=== PATIENT | female | born 1955 | race Caucasian/White ===

== ENCOUNTER → 2018-03-18 08:21 | Outpatient (CLI) | payer OTHER, SELFPAY ==
--- NOTE | 2018-03-18 08:23 | MM_ITS ---
MM Dig screening mamm BI w/CAD CAD Screening COMPARISON: Digital mammograms with CAD 02/13/2016 and 08/14/2013 INDICATION: There is a history of breast cancer patient maternal grandmother. TECHNIQUE: Standard CC and MLO images were obtained. R2 CAD reviewed. FINDINGS: The breasts are composed of entirely of fat with very minimal scattered fibroglandular densities seen in each breast. There is no suspicious lesion and no suspicious microcalcifications. Again noted is the pacemaker device overlying the axillary tail left breast. IMPRESSION: Fatty type breast parenchyma no suspicious lesion seen BI-RADS Category: 2 Benign Finding(s) RECOMMENDED FOLLOW-UP: 1YR - 1 YEAR FOLLOW-UP (A letter has been sent to the patient regarding results of the study.)
== END ==
PROVIDERS: PCP Nurse Practitioner Family; Visit Provider Nurse Practitioner Family
DX: Z12.31 Encounter for screening mammogram for malignant neoplasm of breast (principal)
CPT/HCPCS: 77067

== ENCOUNTER → 2018-08-12 09:47 | Outpatient (CLI) | payer BC, SELFPAY ==
[2018-08-12 11:56] LABS: Alanine Aminotransferase 40 U/L (12-78); Albumin Level 3.9 gm/dL (3.4-5.0); Alkaline Phosphatase 68 U/L (46-116); Anion Gap 17.6 mEq/L (5-15); Aspartate Amino Transferase 17 U/L (15-37); Bilirubin,Direct 0.1 mg/dL (0.0-0.2); Bilirubin,Indirect 0.4 mg/dL (0.0-0.9); Bilirubin,Total 0.5 mg/dL (0.2-1.0); Blood Urea Nitrogen 16 mg/dL (7-18); Carbon Dioxide 23 mmol/L (21.0-32.0); Chloride 104 mmol/L (98-107); Chol/HDL Ratio 4.9 (1-3.5); Cholesterol 206 mg/dL (140-200); Creatinine,Serum 1.05 mg/dL (0.55-1.02); Estimated Glomerular Filt Rate 53 ml/min (>60); GFR (African American) 64 ML/MIN (>60); Glucose 113 mg/dL (74-106); HDL Cholesterol 42 mg/dL (29-89); LDL Cholesterol 121 mg/dL (0-130); Potassium 4.6 mmoL/L (3.5-5.1); Sodium 140 mmol/L (136-145); Total Protein,Serum 7.2 gm/dL (6.4-8.2); Triglycerides 216 mg/dL (30-200); VLDL Cholesterol 43 mg/dL (0-40)
== END ==
PROVIDERS: Visit Provider Urology
DX: E78.5 Hyperlipidemia, unspecified (principal); I10 Essential (primary) hypertension; I25.10 Atherosclerotic heart disease of native coronary artery without angina pectoris; I51.9 Heart disease, unspecified; Z95.810 Presence of automatic (implantable) cardiac defibrillator; I11.9 Hypertensive heart disease without heart failure
CPT/HCPCS: 36415; 80048; 80061; 80076

== ENCOUNTER → 2019-02-10 11:30 | Outpatient (CLI) | payer BC, SELFPAY ==
[2019-02-10 12:40] LABS: Alanine Aminotransferase 33 U/L (12-78); Alkaline Phosphatase 65 U/L (46-116); Aspartate Amino Transferase 21 U/L (15-37); Bilirubin,Direct 0.1 mg/dL (0.0-0.2); Bilirubin,Indirect 0.5 mg/dL (0.0-0.9); Bilirubin,Total 0.6 mg/dL (0.2-1.0); Chol/HDL Ratio 2.8 (1-3.5); Cholesterol 153 mg/dL (140-200); HDL Cholesterol 54 mg/dL (29-89); LDL Cholesterol 76 mg/dL (0-130); Triglycerides 117 mg/dL (30-200); VLDL Cholesterol 23 mg/dL (0-40)
== END ==
PROVIDERS: Visit Provider Internal Medicine Cardiovascular Disease
DX: I10 Essential (primary) hypertension (principal); I11.9 Hypertensive heart disease without heart failure; I25.10 Atherosclerotic heart disease of native coronary artery without angina pectoris; I51.9 Heart disease, unspecified; R06.00 Dyspnea, unspecified; R53.83 Other fatigue; G47.33 Obstructive sleep apnea (adult) (pediatric); Z95.810 Presence of automatic (implantable) cardiac defibrillator
CPT/HCPCS: 36415; 80061; 80076; 83880

== ENCOUNTER → 2019-02-27 07:58 | Outpatient (CLI) | payer BC, SELFPAY ==
--- NOTE | 2019-02-27 08:01 | CA_ITS ---
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: Aspen Morley RT(R) Ht: 5 ft 1 in Wt: 216lbs BSA: 1.95 BP: 143/83 mmHg Indications: CAD, HTN, SOA, YARBROUGH, obesity, hyperlipidemia, hx of 3 cardiac stents M-Mode Dimensions RVDd 2.15 cm (0.9-2.6) LVDd 5.42 cm (3.5-5.7) LVDs 4.05 cm (3.5-5.7) IVSd 0.93 cm (0.6-1.1) PWd 0.93 cm (0.6-1.1) EF (Teich) 49.40% FS 25.30% EDV (Teich) 142.50 mL ESV (Teich) 72.10 mL LV Diastology E/A Ratio 0.75 Mitral Valve MV A Velocity 78.00 (40-130 cm/s) Left Ventricle Left atrium is mildly enlarged, left ventricle is normal size, mild concentric left ventricular hypertrophy, visually estimated ejection fraction 55% with no regional wall motion abnormality, grade 1 diastolic dysfunction seen without tissue Doppler evidence of raise left atrial pressure. Right Ventricle Right atrium and right ventricular normal size and contractility. Aortic Valve Aortic valve is minimally thickened and fibrosed, there is no aortic stenosis aortic insufficiency. Mitral Valve Mitral valve is grossly normal, there is no mitral stenosis, there is mild mitral regurgitation. Tricuspid Valve Tricuspid valve is grossly normal, there is mild tricuspid regurgitation. Pulmonic Valve Pulmonic valve is poorly visualized. Great Vessels Aortic root is normal size. Pericardium No significant pericardial effusion noted. Conclusion 1. Mildly enlarged left atrium, normal left ventricular size, mild concentric left ventricular hypertrophy, visually estimated ejection fraction 55% with no regional wall motion abnormality, grade 1 diastolic dysfunction seen without tissue Doppler evidence of raise left atrial pressure. 2. Mild mitral and tricuspid regurgitation. 3. No significant pericardial effusion noted. Electronically signed by : [place], 02/27/2019 21:22:08
== END ==
PROVIDERS: PCP Nurse Practitioner Family; Visit Provider Internal Medicine Cardiovascular Disease
DX: I11.9 Hypertensive heart disease without heart failure (principal); I25.10 Atherosclerotic heart disease of native coronary artery without angina pectoris; R06.00 Dyspnea, unspecified; G47.33 Obstructive sleep apnea (adult) (pediatric)
CPT/HCPCS: 93306

== ENCOUNTER 2020-03-06 11:02 | Day surgery (SDC) | payer BC, SELFPAY ==
--- NOTE | 2020-03-06 | IR_ITS ---
APPROVED REPORT Patient Location: Outpatient Manager Validation: CHANELLE Tran RT (R) PROCEDURES Pocket Revision Removal of old Pacemaker Implant of Permanent Pacemaker INDICATION Ejection Fraction <30%, Normal Battery Depletion Informed consent was obtained prior to the procedure. COMPLICATIONS None Estimated Blood Loss: Less than 10 mls TECHNIQUE 1% lidocaine with epinephrine used to anesthetize the left anterior aspect of the chest. Scalpel was used to make the initial cutaneous incision and then used to dissect down to the existing pacemaker generator. The generator was removed from the existing pocket. Digital manipulation was required along with intermittent usage of scalpel in order to revise the pocket. The leads were removed from the old generator. The new generator was screwed to the existing leads and secured into place. Electronic interrogation proved acceptable thresholds and voltage within the lead. Antibiotics were used to flush the pocket and the pacemaker was secured using 3-0 silk into the newly revised pocket. Monocryl was used to close the subcutaneous tissue and then traci were placed on the cutaneous area in order to approximate the incision. Patient was transferred to the postop holding area in stable condition. INTERROGATION Explanted Generator Model number: [employer], 2311-36 Explanted Generator Serial number: [id number] Implanted Generator Model number: Momentum EL ICD DR, D121 Implanted Generator Serial number: [id number] Atrial lead model number: Tendril STS, 2088TC Atrial lead serial number: [id number] P-wave: 5.6mV Impedence: 443 ohms Threshold: 1.2V@0.4ms Right Ventricular lead model number: Teofilo IS-1/DR-1, 7120 Right Ventricular lead serial number: [id number] R-wave: 6.8mV Impedence: 459 ohms Threshold: 1.2V@0.4ms Pacing Parameters: Mode: DDDR Base/Max Track: 70ppm/130ppm RYTHMIQ: AAIR with VVI Backup ICD Rate Cutoffs: VT: 180 bpm, 10.0 seconds, Monitor only VF: 200 bpm, 2.5 seconds, Quick convert, 41J x 8 No diaphragmatic stimulation at 10 volts. IMPRESSION Successful Pocket Revision Successful Removal of old Pacemaker Successful Implant of Permanent Pacemaker PLAN 1. Post op wound care, follow up office visit Electronically signed by : Corey Gunter, 03/07/2020 08:53:45
[2020-03-06 11:07] LABS: Bilirubin,Unconjugated 0.5 mg/dL (0.0-1.1)
[2020-03-06 11:08] LABS: Alanine Aminotransferase 39 U/L (12-78); Albumin Level 4.6 g/dl (3.5-5.0); Alkaline Phosphatase 71 U/L (38-126); Aspartate Amino Transferase 34 U/L (14-36); Bilirubin,Direct 0.1 mg/dl (0.0-0.4); Bilirubin,Indirect 0.5 mg/dL (0.0-0.9); Bilirubin,Total 0.6 mg/dl (0.2-1.3); Chol/HDL Ratio 3.7 (1-3.5); Cholesterol 208 mg/dl (140-200); HDL Cholesterol 56 mg/dl (40-60); Total Protein,Serum 7.7 g/dl (6.3-8.2); Triglycerides 185 mg/dl (30-150); VLDL Cholesterol 37 mg/dL (0-40)
[2020-03-06 11:18] VITALS: BMI 42.1
[2020-03-06 11:19] LABS: Direct LDL Cholesterol 102.48 mg/dL (100-129)
[2020-03-06 11:38] VITALS: BP 158/83; PULSE 70; RESP 20; O2SAT 94
[2020-03-06 11:40] LABS: Coronavirus 19 IgG Antibody Negative (Negative); Coronavirus 19 IgM Antibody Negative (Negative)
[2020-03-06 12:51] LABS: Chloride 102 mmol/L (98-107)
[2020-03-06 12:52] LABS: Potassium 4.8 mmoL/L (3.5-5.1); Sodium 138 mmol/L (136-145)
[2020-03-06 12:54] LABS: Basophils % 0.6 % (0.1-2.0); Eosinophils # 0.2 K/mm3 (0.0-0.4); Eosinophils % 2.4 % (0.1-12.0); Hematocrit 42.3 % (37.0-47.0); Hemoglobin 14.3 g/dL (12.2-16.2); Lymphocytes % 31.3 % (10-50); Mean Corpuscular HGB Conc 33.9 g/dL (31.8-35.4); Mean Corpuscular Hemoglobin 30.7 pg (27.0-31.2); Mean Corpuscular Volume 90.5 fl (81-99); Mean Platelet Volume 8.1 fl (7.4-10.4); Monocytes # 0.5 K/mm3 (0.1-1.0); Monocytes % 7.6 % (1.7-9.3); Neutrophils # 3.7 K/mm3 (1.8-7.8); Platelet Count 329 K/mm3 (142-424); Red Blood Count 4.68 M/mm3 (4.20-5.40); White Blood Count 6.5 K/mm3 (4.8-10.8)
[2020-03-06 12:55] LABS: Anion Gap 11.8 mEq/L (5-15); Blood Urea Nitrogen 20 mg/dl (7-17); Calcium 9.6 mg/dl (8.4-10.2); Carbon Dioxide 29 mmol/L (22.0-30.0); Creatinine Clearance Estimated 43 mL/min (50-200); Estimated Glomerular Filt Rate 56 ml/min (>60); GFR (African American) 68 ML/MIN (>60); Glucose 120 mg/dl (74-100)
--- NOTE | 2020-03-06 12:58 | P.PN_ITS ---
[facility] Anesthesia Checklist - Patient Identification Patient Identification: Arm Band - Structural Data Admitted From: Home Planned Operative Procedure/s: AICD generator change Consent for Planned Operative Procedure(s) Verified: Yes Verified Documents: Surgical Consent, History and Physical - NPO Status Verified Time NPO: 00:00 - Additional verifications Anesthesia Reactions: No Hx Blood Transfusions: No - Airway Assessment C-Spine Mobility Assessed: Yes (mp2) TMJ Mobility Assessed: Yes Dentition: Good Dentition - Neurological Assessment Level of Consciousness: Awake, Alert - Anesthesia Plan Anesthesia Risk discussed: Yes Anesthesia Plan: Verified ASA Class: III Anesthesia Type: MAC [facility] History I have reviewed the patient's past medical history: Yes Medical History: Reports:: Coronary Artery Disease, Gastroesophageal Reflux Disease(GERD), Hyperlipidemia, Hypertension Denies:: Internal Pacemaker, Seizures *Have you ever received a pneumonia vaccine?: No *Have you received a flu vaccine this season?: No Other Medical History: Reports: Anemia Anesthesia experience/problems:: nac Other Surgeries: Yes: Cardiac Catheterization, Hysterectomy-Total, Other (Cholecystectomy). No: Pacemaker - *Social History Last grade of school completed: High school graduate Smoking Status: Never smoker Alcohol Intake: never Alcohol Intake Frequency:: holidays/special occasions only Substance Use Type: denies use *Occupational Status:: unemployed *Travel in the last 8 weeks: Inside the [place] Family Hx:: Heart Attack, Coronary Artery Disease
[2020-03-06 13:41] VITALS: BP 129/72; PULSE 72; RESP 18; TEMP 36.3; O2SAT 91
[2020-03-06 13:48] VITALS: PULSE 72
[2020-03-06 13:55] VITALS: BP 150/80; PULSE 70; O2SAT 93
[2020-03-06 14:09] VITALS: BP 146/85; PULSE 70; RESP 20; O2SAT 95
== END 2020-03-06 14:27 | disposition home or self-care (01) ==
LOC: CATHLAB 11:02
PROVIDERS: Internal Medicine Cardiovascular Disease; Nurse Practitioner Family; PCP Nurse Practitioner Family; Visit Provider Internal Medicine
DX: Z45.02 Encounter for adjustment and management of automatic implantable cardiac defibrillator; I11.0 Hypertensive heart disease with heart failure; I25.10 Atherosclerotic heart disease of native coronary artery without angina pectoris; R06.00 Dyspnea, unspecified; I50.22 Chronic systolic (congestive) heart failure; E78.2 Mixed hyperlipidemia; Z79.899 Other long term (current) drug therapy
CPT/HCPCS: 33263; 36415; 80048; 80061; 80076; 85025; 86328; C1721

== ENCOUNTER → 2020-09-12 10:38 | Outpatient (CLI) | payer BC, SELFPAY ==
[2020-09-12 10:57] LABS: Basophils # 0.1 K/mm3 (0-0.2); Basophils % 0.8 % (0.1-2.0); Eosinophils # 0.1 K/mm3 (0.0-0.4); Hematocrit 39.3 % (37.0-47.0); Hemoglobin 12.9 g/dL (12.2-16.2); Lymphocytes # 2.1 K/mm3 (0.7-4.5); Mean Corpuscular Hemoglobin 29.2 pg (27.0-31.2); Mean Corpuscular Volume 88.8 fl (81-99); Mean Platelet Volume 7.5 fl (7.4-10.4); Monocytes # 0.4 K/mm3 (0.1-1.0); Monocytes % 5.8 % (1.7-9.3); Neutrophils % 60.4 % (37.0-80.0); Platelet Count 267 K/mm3 (142-424); Red Blood Count 4.43 M/mm3 (4.20-5.40); Red Cell Distribution Width 15.5 % (11.5-17.5); White Blood Count 6.7 K/mm3 (4.8-10.8)
[2020-09-12 11:02] LABS: Chloride 105 mmol/L (98-107); Potassium 4.3 mmoL/L (3.5-5.1); Sodium 140 mmol/L (136-145)
[2020-09-12 11:05] LABS: Anion Gap 15.3 mEq/L (5-15); Blood Urea Nitrogen 18 mg/dl (7-17); Carbon Dioxide 24 mmol/L (22.0-30.0); Estimated Glomerular Filt Rate 63 ml/min (>60); GFR (African American) 76 ML/MIN (>60); Glucose 137 mg/dl (74-100)
[2020-09-12 11:18] LABS: Troponin I < 0.01 ng/ml (0.00-0.034)
[2020-09-12 15:31] LABS: Chol/HDL Ratio 4.2 (1-3.5); Cholesterol 201 mg/dl (140-200); HDL Cholesterol 48 mg/dl (40-60); Triglycerides 285 mg/dl (30-150); VLDL Cholesterol 57 mg/dL (0-40)
[2020-09-12 15:42] LABS: Direct LDL Cholesterol 98.76 mg/dL (100-129)
== END ==
PROVIDERS: Visit Provider Physician Assistant
DX: I25.10 Atherosclerotic heart disease of native coronary artery without angina pectoris (principal)
CPT/HCPCS: 36415; 80048; 80061; 84484; 85025

== ENCOUNTER → 2021-03-31 19:51 | Outpatient (CLI) | payer BC, SELFPAY | PROVIDERS: Visit Provider Nurse Practitioner Family | DX: Z20.822 Contact with and (suspected) exposure to COVID-19 (principal) | CPT/HCPCS: C9803; U0003; U0005 ==

== ENCOUNTER → 2021-05-28 15:13 | Outpatient (CLI) | payer BC, SELFPAY ==
--- NOTE | 2021-05-28 15:14 | MM_ITS ---
PROCEDURE INFORMATION: Exam: MG Bilateral Screening 3D Mammography Exam date and time: 05/28/2021 3:14 PM Age: 65 years old Clinical indication: Screening mammogram TECHNIQUE: Imaging protocol: Bilateral Screening tomosynthesis and 2D mammography including computer-aided detection (CAD) when performed. COMPARISON: 1. MG SCBI MM Dig screening mamm BI w/CAD 03/18/2018 8:38 AM 2. MG DMSB DIG MAMM-SCREEN TERESO 02/13/2016 4:53 PM 3. MG DMSB DIG MAMM-SCREEN TERESO 08/14/2013 4:13 PM FINDINGS: MAMMOGRAPHY: Breast composition: There are scattered areas of fibroglandular density. Mass: None. Architectural distortion: No new or suspicious architectural distortion. Calcifications: No new or suspicious calcifications are present Asymmetric density: No new or suspicious asymmetric density is present Skin thickening: None. Axillary adenopathy: None. Left chest wall cardiac pacemaker IMPRESSION: No mammographic evidence of malignancy. Recommend annual screening mammography unless otherwise clinically indicated. ASSESSMENT: BI-RADS category 1: Negative
== END ==
PROVIDERS: PCP Nurse Practitioner Family; Visit Provider Nurse Practitioner Family
DX: Z12.31 Encounter for screening mammogram for malignant neoplasm of breast (principal)
CPT/HCPCS: 77063; 77067

== ENCOUNTER → 2021-06-18 07:52 | Outpatient (CLI) | payer BC, SELFPAY ==
--- NOTE | 2021-06-18 07:58 | XR_ITS ---
FINAL REPORT TECHNIQUE: Chest PA & Lateral CLINICAL HISTORY: pacemaker leads; pacemaker placed over a year ago COMPARISON: November 12, 2016 FINDINGS: 2 views of the chest were performed. The heart is mildly enlarged. There is a left subclavian pacemaker. The mediastinum is within normal limits. The lungs are underinflated. There is no acute cardiopulmonary process. There are no pleural effusions. There is no pneumothorax. The bony thorax appears intact. IMPRESSION: No acute cardiopulmonary process. Reviewed, Interpreted and Dictated by Alex Jerez MD Transcribed by Wilmer Sahu Authenticated by Alex Jerez MD on 06/18/2021 10:03:[address] [facility]
== END ==
PROVIDERS: PCP Nurse Practitioner Family; Visit Provider Internal Medicine
DX: Z95.810 Presence of automatic (implantable) cardiac defibrillator (principal)
CPT/HCPCS: 71046

== ENCOUNTER → 2021-12-13 08:35 | Outpatient (CLI) | payer BC, SELFPAY ==
[2021-12-13 09:13] LABS: Basophils # 0.1 K/mm3 (0-0.2); Basophils % 1.4 % (0.1-2.0); Eosinophils # 0.1 K/mm3 (0.0-0.4); Eosinophils % 2.1 % (0.1-12.0); Hematocrit 39.9 % (37.0-47.0); Hemoglobin 12.9 g/dL (12.2-16.2); Lymphocytes # 1.9 K/mm3 (0.7-4.5); Lymphocytes % 32.2 % (10-50); Mean Corpuscular HGB Conc 32.3 g/dL (31.8-35.4); Mean Corpuscular Hemoglobin 30.4 pg (27.0-31.2); Mean Corpuscular Volume 94.2 fl (81-99); Mean Platelet Volume 8.7 fl (7.4-10.4); Monocytes # 0.4 K/mm3 (0.1-1.0); Monocytes % 7.1 % (1.7-9.3); Neutrophils # 3.4 K/mm3 (1.8-7.8); Neutrophils % 57.3 % (37.0-80.0); Platelet Count 266 K/mm3 (142-424); Red Blood Count 4.24 M/mm3 (4.20-5.40); Red Cell Distribution Width 16.2 % (11.5-17.5)
[2021-12-13 09:32] LABS: Hemoglobin A1C 7.1 % (4.0-6.0)
[2021-12-13 09:42] LABS: Alanine Aminotransferase 40 U/L (12-78); Albumin/Globulin Ratio 1.8 (1.1-1.8); Alkaline Phosphatase 88 U/L (38-126); Anion Gap 15.5 mEq/L (5-15); Aspartate Amino Transferase 30 U/L (14-36); Bilirubin,Total 0.3 mg/dl (0.2-1.3); Blood Urea Nitrogen 21 mg/dl (7-17); Calcium 8.7 mg/dl (8.4-10.2); Carbon Dioxide 24 mmol/L (22.0-30.0); Chloride 103 mmol/L (98-107); Chol/HDL Ratio 2.7 (1-3.5); Cholesterol 126 mg/dl (140-200); Estimated Glomerular Filt Rate 63 ml/min (>60); GFR (African American) 76 ML/MIN (>60); Globulin 2.2 g/dL (1.3-3.2); Glucose 195 mg/dl (74-100); HDL Cholesterol 47 mg/dl (40-60); Potassium 4.5 mmoL/L (3.5-5.1); Sodium 138 mmol/L (136-145); Total Protein,Serum 6.2 g/dl (6.3-8.2); Triglycerides 124 mg/dl (30-150); VLDL Cholesterol 25 mg/dL (0-40)
[2021-12-13 09:53] LABS: Direct LDL Cholesterol 50.72 mg/dL (100-129)
[2021-12-13 10:12] LABS: Thyroid Stimulating Hormone 2.17 uIU/mL (0.465-4.68)
[2021-12-13 10:31] LABS: Vitamin B12 418 pg/mL (239-931)
== END ==
PROVIDERS: PCP Nurse Practitioner Family; Visit Provider Nurse Practitioner Family
DX: I25.10 Atherosclerotic heart disease of native coronary artery without angina pectoris (principal); R53.83 Other fatigue; E66.9 Obesity, unspecified; Z68.41 Body mass index [BMI] 40.0-44.9, adult; Z83.3 Family history of diabetes mellitus
CPT/HCPCS: 36415; 80053; 80061; 82306; 82607; 83036; 84443; 85025

== ENCOUNTER → 2022-07-14 09:48 | Outpatient (CLI) | payer BC, SELFPAY ==
--- NOTE | 2022-07-14 09:58 | MM_ITS ---
PROCEDURE INFORMATION: Exam: MG Bilateral Screening 3D Mammography Exam date and time: 07/14/2022 9:54 AM Age: 66 years old Clinical indication: Screening examination. Her paternal grandmother had breast cancer. TECHNIQUE: Imaging protocol: Bilateral Screening tomosynthesis and 2D mammography including computer-aided detection (CAD) when performed. COMPARISON: 1. MG MM DIG SCREENING MAMM BI W/CAD 05/28/2021 3:21 PM 2. MG SCBI MM Dig screening mamm BI w/CAD 03/18/2018 8:38 AM 3. MG DMSB DIG MAMM-SCREEN TERESO 02/13/2016 4:53 PM 4. MG DMSB DIG MAMM-SCREEN TERESO 08/14/2013 4:13 PM FINDINGS: MAMMOGRAPHY: Breast composition: There are scattered areas of fibroglandular density. Mass: No suspicious mass. Architectural distortion: None. Calcifications: No suspicious calcifications. Asymmetric density: None. Skin thickening: None. Axillary adenopathy: None. Other findings: Pacemaker in the left axilla and central breast posteriorly, limits evaluation and accentuates the importance of clinical breast exam. IMPRESSION: No mammographic evidence of malignancy. Annual screening is recommended unless otherwise clinically indicated. ASSESSMENT: BI-RADS Category 1: Negative
== END ==
PROVIDERS: PCP Nurse Practitioner Family; Visit Provider Nurse Practitioner Family
DX: Z12.31 Encounter for screening mammogram for malignant neoplasm of breast (principal)
CPT/HCPCS: 77063; 77067

== ENCOUNTER → 2022-07-17 15:04 | Outpatient (CLI) | payer BC, SELFPAY ==
--- NOTE | 2022-07-17 15:14 | US_ITS ---
FINAL REPORT CLINICAL HISTORY: LUMP IN CHEST COMPARISON: None FINDINGS: ULTRASOUND SOFT TISSUE LIMITED Sonographic images of the area of interest in the left anterior chest were obtained. There are several mildly enlarged left axillary lymph nodes which are nonspecific and favored to be reactive. IMPRESSION: Several mildly enlarged left axillary lymph nodes, favor reactive. Reviewed, Interpreted and Dictated by Luis Santillan III, MD Transcribed by Kathrine Delaney Authenticated and [facility]
== END ==
LOC: RAD 15:05
PROVIDERS: PCP Nurse Practitioner Family; Visit Provider Nurse Practitioner Family
DX: R22.2 Localized swelling, mass and lump, trunk (principal)
CPT/HCPCS: 76604

== ENCOUNTER → 2022-07-22 11:20 | Outpatient (CLI) | payer BC, SELFPAY ==
--- NOTE | 2022-07-22 11:23 | XR_ITS ---
FINAL REPORT CLINICAL HISTORY: CHECK PACEMAKER LEADS COMPARISON: 06/18/2021 FINDINGS: Two views of the chest were obtained. A left subclavian ICD has a stable appearance. The heart size and pulmonary vascularity are within normal limits. The mediastinum is normal. No acute pulmonary abnormality is identified. There is no pneumothorax. The bony thorax is intact. IMPRESSION: No active cardiopulmonary disease. Reviewed, Interpreted and Dictated by Luis Santillan III, MD Transcribed by Leeanna Mueller Authenticated and [facility]
== END ==
PROVIDERS: PCP Nurse Practitioner Family; Visit Provider Nurse Practitioner Family
DX: Z95.810 Presence of automatic (implantable) cardiac defibrillator (principal)
CPT/HCPCS: 71046

== ENCOUNTER → 2022-11-17 14:23 | Outpatient (CLI) | payer BC, SELFPAY ==
[2022-11-17 15:27] LABS: Blood Urea Nitrogen 22 mg/dl (7-17); Estimated Glomerular Filt Rate 50 ml/min (>60); GFR (African American) 60 ML/MIN (>60)
== END ==
LOC: LAB 14:25
PROVIDERS: PCP Nurse Practitioner Family; Visit Provider Otolaryngology
DX: Z01.812 Encounter for preprocedural laboratory examination (principal)
CPT/HCPCS: 36415; 82565; 84520

== ENCOUNTER → 2022-11-20 13:04 | Outpatient (CLI) | payer BC, SELFPAY ==
--- NOTE | 2022-11-20 13:07 | CT_ITS ---
FINAL REPORT TECHNIQUE: Routine axial images were obtained from the lung apices to below the diaphragm following IV contrast administration. Individualized dose reduction techniques using automated exposure control or adjustment of the mA and/or kV according to the patient size were employed. CLINICAL HISTORY: LOCALIZED SWELLING, MASS OR LUMPS IN UPPER CHEST AREA, SEVERAL AREAS PER PATIENT, NOT SURE EXACTLY WHAT THEY ARE COMPARISON: None FINDINGS: There is a left upper anterior chest wall pacemaker present. Dense coronary artery calcifications are noted. No acute lung disease is present. No pleural or pericardial effusion is seen. No adenopathy or mass lesion is present. Mild scarring is noted in the lung bases. The gallbladder is surgically absent. IMPRESSION: Left upper anterior chest wall pacemaker present. Dense coronary artery calcifications are noted. Reviewed, Interpreted and Dictated by Alex Jerez MD Transcribed by Susan Alejo Authenticated and [facility]
== END ==
LOC: RAD 13:04
PROVIDERS: PCP Nurse Practitioner Family; Visit Provider Otolaryngology
DX: R22.2 Localized swelling, mass and lump, trunk (principal)
CPT/HCPCS: 71260; Q9967

== ENCOUNTER 2023-04-02 10:37 | Outpatient (CLI) | payer BC, SELFPAY | END 2023-04-02 23:59 | LOC: LAB.DROPOF 04-09 10:37 | PROVIDERS: PCP Nurse Practitioner Family; Visit Provider Nurse Practitioner Family | DX: J02.9 Acute pharyngitis, unspecified (principal); R52 Pain, unspecified; R50.9 Fever, unspecified; R51.9 Headache, unspecified; R05.9 Cough, unspecified; R06.2 Wheezing | CPT/HCPCS: 87070; 87635 ==

== ENCOUNTER 2023-06-03 13:27 | Outpatient (CLI) | payer BC, SELFPAY ==
[2023-06-03 14:10] LABS: Basophils # 0.1 K/mm3 (0-0.2); Basophils % 1.5 % (0.1-2.0); Eosinophils # 0.1 K/mm3 (0.0-0.4); Eosinophils % 1.2 % (0.1-12.0); Hematocrit 40.4 % (37.0-47.0); Hemoglobin 13.5 g/dL (12.2-16.2); Lymphocytes # 1.8 K/mm3 (0.7-4.5); Lymphocytes % 30.1 % (10-50); Mean Corpuscular HGB Conc 33.5 g/dL (31.8-35.4); Mean Corpuscular Hemoglobin 31.9 pg (27.0-31.2); Mean Corpuscular Volume 95.2 fl (81-99); Mean Platelet Volume 8.6 fl (7.4-10.4); Monocytes # 0.5 K/mm3 (0.1-1.0); Neutrophils # 3.5 K/mm3 (1.8-7.8); Neutrophils % 59.2 % (37.0-80.0); Platelet Count 268 K/mm3 (142-424); Red Blood Count 4.24 M/mm3 (4.20-5.40); Red Cell Distribution Width 15.5 % (11.5-17.5)
[2023-06-03 14:44] LABS: Alanine Aminotransferase 17 U/L (12-78); Albumin Level 4.4 g/dl (3.5-5.0); Alkaline Phosphatase 59 U/L (38-126); Anion Gap 11.5 mEq/L (5-15); Aspartate Amino Transferase 23 U/L (14-36); Bilirubin,Direct 0.1 mg/dl (0.0-0.4); Bilirubin,Indirect 0.5 mg/dL (0.0-0.9); Bilirubin,Total 0.6 mg/dl (0.2-1.3); Bilirubin,Unconjugated 0.4 mg/dL (0.0-1.1); Blood Urea Nitrogen 23 mg/dl (7-17); Calcium 9.2 mg/dl (8.4-10.2); Carbon Dioxide 28 mmol/L (22.0-30.0); Chloride 107 mmol/L (98-107); Cholesterol 186 mg/dl (140-200); Estimated Glomerular Filt Rate 45 ml/min (>60); GFR (African American) 54 ML/MIN (>60); Glucose 100 mg/dl (74-100); HDL Cholesterol 47 mg/dl (40-60); Magnesium 2.1 mg/dl (1.6-2.3); Potassium 4.5 mmoL/L (3.5-5.1); Sodium 142 mmol/L (136-145); Total Protein,Serum 6.5 g/dl (6.3-8.2); Triglycerides 177 mg/dl (30-150); VLDL Cholesterol 35 mg/dL (0-40)
[2023-06-03 14:55] LABS: Direct LDL Cholesterol 79.72 mg/dL (100-129)
[2023-06-03 15:01] LABS: Free T4 (Free Thyroxine) 0.86 ng/dl (0.78-2.19)
[2023-06-03 15:15] LABS: Thyroid Stimulating Hormone 1.01 uIU/mL (0.465-4.68)
== END 2023-06-03 23:59 ==
LOC: LAB 13:29
PROVIDERS: PCP Nurse Practitioner Family; Visit Provider Internal Medicine
DX: I48.0 Paroxysmal atrial fibrillation (principal); I25.10 Atherosclerotic heart disease of native coronary artery without angina pectoris; I11.9 Hypertensive heart disease without heart failure; E78.2 Mixed hyperlipidemia; Z95.810 Presence of automatic (implantable) cardiac defibrillator; Z79.899 Other long term (current) drug therapy
CPT/HCPCS: 36415; 80048; 80061; 80076; 83735; 84439; 84443; 85025

== ENCOUNTER 2023-10-20 16:26 | Outpatient (CLI) | payer MEDICARE, BC, SELFPAY ==
[2023-10-20 17:09] LABS: Hemoglobin A1C 4.7 % (4.0-6.0)
== END 2023-10-20 23:59 | disposition home or self-care (01) ==
LOC: LAB 16:29
PROVIDERS: PCP Nurse Practitioner Family; Visit Provider Nurse Practitioner Family
DX: E11.9 Type 2 diabetes mellitus without complications (principal)
CPT/HCPCS: 36415; 83036

== ENCOUNTER 2024-06-21 15:12 | Outpatient (CLI) | payer BC, MEDICARE, SELFPAY ==
[2024-06-21 15:43] LABS: Basophils % 0.7 % (0.1-2.0); Eosinophils # 0.1 K/mm3 (0.0-0.4); Hematocrit 39.4 % (37.0-47.0); Hemoglobin 13.2 g/dL (12.2-16.2); Lymphocytes # 1.6 K/mm3 (0.7-4.5); Mean Corpuscular HGB Conc 33.5 g/dL (31.8-35.4); Mean Corpuscular Hemoglobin 31.1 pg (27.0-31.2); Mean Corpuscular Volume 92.7 fl (81-99); Mean Platelet Volume 9.8 fl (7.4-10.4); Monocytes # 0.3 K/mm3 (0.1-1.0); Monocytes % 5.4 % (1.7-9.3); Neutrophils # 3.6 K/mm3 (1.8-7.8); Neutrophils % 63.7 % (37.0-80.0); Platelet Count 258 K/mm3 (142-424); Red Blood Count 4.25 M/mm3 (4.20-5.40); Red Cell Distribution Width 14.3 % (11.5-17.5); White Blood Count 5.6 K/mm3 (4.8-10.8)
[2024-06-21 15:55] LABS: Albumin Level 4.7 g/dl (3.5-5.0); Chloride 106 mmol/L (98-107)
[2024-06-21 15:56] LABS: Potassium 4.1 mmoL/L (3.5-5.1); Sodium 141 mmol/L (136-145)
[2024-06-21 15:58] LABS: Alanine Aminotransferase 25 U/L (12-78); Anion Gap 12.1 mEq/L (5-15); Aspartate Amino Transferase 37 U/L (14-36); Bilirubin,Unconjugated 0.7 mg/dL (0.0-1.1); Blood Urea Nitrogen 16 mg/dl (7-17); Carbon Dioxide 27 mmol/L (22.0-30.0); Cholesterol 222 mg/dl (140-200); Estimated Glomerular Filt Rate 62 ml/min (>60); GFR (African American) 76 ML/MIN (>60); Triglycerides 144 mg/dl (30-150); VLDL Cholesterol 29 mg/dL (0-40)
[2024-06-21 15:59] LABS: Alkaline Phosphatase 52 U/L (38-126); Bilirubin,Direct 0.1 mg/dl (0.0-0.4); Bilirubin,Indirect 0.6 mg/dL (0.0-0.9); Bilirubin,Total 0.7 mg/dl (0.2-1.3); Calcium 9.4 mg/dl (8.4-10.2); Chol/HDL Ratio 3.8 (1-3.5); Glucose 180 mg/dl (74-100); HDL Cholesterol 58 mg/dl (40-60)
[2024-06-21 16:10] LABS: Direct LDL Cholesterol 108.17 mg/dL (100-129)
[2024-06-21 16:29] LABS: Thyroid Stimulating Hormone 0.97 uIU/mL (0.465-4.68)
[2024-06-21 16:48] LABS: Total Protein,Serum 7.1 g/dl (6.3-8.2)
== END 2024-06-21 23:59 | disposition home or self-care (01) ==
LOC: LAB 15:16
PROVIDERS: PCP Nurse Practitioner Family; Visit Provider Internal Medicine
DX: I11.9 Hypertensive heart disease without heart failure (principal); E11.9 Type 2 diabetes mellitus without complications; E78.2 Mixed hyperlipidemia
CPT/HCPCS: 80048; 80061; 80076; 84439; 84443; 85025

== ENCOUNTER 2024-10-04 14:17 | Outpatient (CLI) | payer BC, MEDICARE, SELFPAY ==
--- OUTSIDE RECORDS SUMMARY | 2024-10-04 14:19 | XMS_ITS | Clinical Summary ---
Author Organization [facility] [place] Address [address] [place] [phone] Phone Care Team Providers Care Computer Operations Manager Name Role Phone Unavailable Primary Care Provider Unavailabl e Allergies No known active allergies Medications lisinopril (PRINIVIL;ZESTR IL) 20 mg Oral Tablet Take 20 mg by mouth daily. Active carvedilol (COREG) 6.25 mg Oral Tablet Take 6.25 mg by mouth 2 times daily (with meals). Active potassium chloride (KLOR-CON 10) 10 mEq Oral Tablet Sustained Release Take 10 mEq by mouth 2 times daily. Active fUROsemide (LASIX) 40 mg Oral Tablet Take 40 mg by mouth every 12 hours. Active simvastatin (ZOCOR) 40 mg Oral Tablet Take 40 mg by mouth daily. Active aspirin (CHILD ASPIRIN) 81 mg Oral Tablet, Chewable Take 81 mg by mouth daily. Active nitroGLYCERIN (NITROSTAT) 0.4 mg SL Tablet, Sublingual Place 0.4 mg under the tongue every 5 minutes as needed for Chest pain. Active Active Problems Problem Noted Date Diagnosed Date Coronary artery disease due to calcified coronar y lesion 09/09/2016 Essential hypertension 09/09/2016 Mixed hyperlipidemia 09/09/2016 SANDRA (obstructive sleep apnea) 09/09/2016 Obesity, Class III, BMI 40-49.9 (morbid obesity) 09/09/2016 Surgical History Surgery Date Site/Laterality Comments CHOLECYSTECTOMY CORONARY ANGIOPLASTY WITH STENT PLACEMENT PACEMAKER PLACEMENT HYSTERECTOMY COLONOSCOPY WISDOM TOOTH EXTRACTION Bilateral TONSILLECTOMY Medical History Medical History Date Comments Encounter for blood transfusion 1979 previous Gall bladder disease Heart disease blockages, stent placement Heart attack (HCC) Hypertension High cholesterol Sleep apnea Snoring Family History Medical History Relation Name Comments Heart Attack Brother Heart Disease Brother Heart Attack Father Diabetes Maternal Grandmother Cancer Mother Diabetes Paternal Aunt Diabetes Sister 2 Obesity Sister 2 Heart Attack Sister 3 Heart Disease Sister 3 High Blood Pressure Sister 3 High Cholesterol Sister 3 Relation Name Status Comments Brother Alive Father Maternal Grandmother Mother Paternal Aunt Sister 1 Alive Sister 2 Alive Sister 3 Alive Social History Tobacco Use Types Packs/Day Years Used Date Smoking Tobacco: Never Comments No Sex and Gender Information Value Date Recorded Sex Assigned at Not on file Legal Sex Female 1:46 PM EDT Gender Identity Not on file Sexual Orientation Not on file Obstetrics History Last Filed Vital Signs Vital Sign Reading Time Taken Comments Blood Pressure 128/82 09/09/2016 8:43 AM EDT Pulse 111 09/09/2016 8:43 AM EDT Temperature - - Respiratory Rate - - Oxygen Saturation - - Inhaled Oxygen Concentration - - Weight 100.3 kg (221 lb 3.2 oz) 017 11:05 AM EDT Height 154.9 cm (5' 1 ) 09/09/2016 8:43 AM EDT Body Mass Index 41.8 09/09/2016 8:43 AM EDT Plan of Treatment Health Maintenance Due Date Last Done Comments Annual Wellness Exam 09[birth year]13/1958 Hepatitis C Screening 1974 DTaP/TDaP/Td (1 - Tdap) 09/13/1975 Breast Cancer Screening 1996 Cologuard 2001 Colon Cancer Screening 2001 Colonoscopy 2001 FIT 2001 Sigmoidoscopy 2001 Virtual Colonography 2001 Pneumococcal Vaccine 50+ (1 of 1 - PCV) 2006 Zoster (1 of 2) 2006 RSV or 60+ (1 - Ris k 60-74 years 1-dose series) 2016 Bone Density Screening 2021 COVID-19 Vaccine (1 - 2023-2 5 season) 2023 Influenza Vaccine (#1) 2024 Hepatitis B Vaccine Aged Out No longe r eligible based on patient's age to complete this topic Meningococcal B Vaccine Aged Out No l onger eligible based on patient's age to complete this topic Insurance [employer] [place] PPO
[2024-10-04 14:32] LABS: Albumin Level 4.8 g/dl (3.5-5.0)
[2024-10-04 14:33] LABS: Chloride 103 mmol/L (98-107); Potassium 4.7 mmoL/L (3.5-5.1); Sodium 139 mmol/L (136-145)
[2024-10-04 14:35] LABS: Alanine Aminotransferase 32 U/L (12-78); Albumin/Globulin Ratio 1.9 (1.1-1.8); Alkaline Phosphatase 57 U/L (38-126); Anion Gap 14.7 mEq/L (5-15); Aspartate Amino Transferase 34 U/L (14-36); Bilirubin,Total 0.7 mg/dl (0.2-1.3); Blood Urea Nitrogen 23 mg/dl (7-17); Carbon Dioxide 26 mmol/L (22.0-30.0); Creatinine,Serum 0.90 mg/dl (0.52-1.04); Estimated Glomerular Filt Rate 62 ml/min (>60); GFR (African American) 75 ML/MIN (>60); Globulin 2.5 g/dL (1.3-3.2); Total Protein,Serum 7.3 g/dl (6.3-8.2)
[2024-10-04 14:36] LABS: Calcium 9.3 mg/dl (8.4-10.2); Cholesterol 139 mg/dl (140-200); Glucose 96 mg/dl (74-100); HDL Cholesterol 54 mg/dl (40-60); Magnesium 2.1 mg/dl (1.6-2.3); Triglycerides 144 mg/dl (30-150)
[2024-10-04 14:51] LABS: Hemoglobin A1C 6.1 % (4.0-6.0)
[2024-10-04 15:07] LABS: Thyroid Stimulating Hormone 1.62 uIU/mL (0.465-4.68)
[2024-10-04 17:54] LABS: Vitamin B12 352 pg/mL (239-931)
== END 2024-10-04 23:59 | disposition home or self-care (01) ==
LOC: LAB.DROPOF 14:17
PROVIDERS: PCP Nurse Practitioner Family; Visit Provider Nurse Practitioner Family
DX: E11.9 Type 2 diabetes mellitus without complications (principal); I10 Essential (primary) hypertension; E78.2 Mixed hyperlipidemia
CPT/HCPCS: 80053; 80061; 82043; 82570; 82607; 83036; 83735; 84443

== ENCOUNTER 2024-11-22 16:15 | Outpatient (CLI) | payer BC, MEDICARE, SELFPAY ==
[2024-11-22 18:29] LABS: Uric Acid 4.3 mg/dl (2.5-6.2)
[2024-11-22 18:43] LABS: 25-OH Vitamin D, Total 38.6 ng/mL (30-100)
--- OUTSIDE RECORDS SUMMARY | 2024-11-23 13:11 | XMS_ITS | Clinical Summary ---
Author Organization [facility] [place] Address [address] [place] [phone] Phone Care Team Providers Care Branch Service Specialist Name Role Phone Unavailable Primary Care Provider [...]
[2024-11-24 14:12] LABS: RA Latex Turbid. <10.0 IU/mL (<14.0)
== END 2024-11-22 23:59 | disposition home or self-care (01) ==
LOC: LAB.DROPOF 11-23 13:07
PROVIDERS: PCP Nurse Practitioner Family; Visit Provider Nurse Practitioner Family
DX: M79.671 Pain in right foot (principal); M79.672 Pain in left foot
CPT/HCPCS: 82306; 84550; 85651; 86038; 86431